=== PATIENT | male | born 1970 | race Caucasian/White ===

== ENCOUNTER 2024-10-21 15:53 | Emergency (ER) | payer OTHER, SELFPAY ==
--- NOTE | ~2024-10-21 | XR_ITS ---
EXAMINATION: XR knee LT min 4V DATE: 10/21/2024 16:31 INDICATION: Left knee pain and swelling TECHNIQUE: Anteroposterior, 2 oblique and crosstable lateral views of the left knee were obtained COMPARISON: None. FINDINGS: Alignment is normal. No fracture. Joint spaces appear normal on nonweightbearing imaging. No joint e ffusion/layering lipohemarthrosis. There is prominent prepatellar and prepatellar soft tissue swellin g. IMPRESSION: 1. Nonspecific prepatellar and pretibial soft tissue swelling. No left knee joint effusion or osseous adenopathy. Reviewed, dictated and finalized at location A. IMPRESSION: 1. Nonspecific prepatellar and pretibial soft tissue swelling. No left knee ashley nt effusion or osseous adenopathy.
--- OUTSIDE RECORDS SUMMARY | 2024-10-21 15:56 | XMS_ITS | Clinical Summary ---
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 This disclosure is being madepursuant to the Care Everywhere program and may not contain all information available regarding this patient. Last updated 17.[facility] Allergies No known active allergies Medications * Be aware that medications may not be up to date on this document. Alwaysverify current medications with the patient. No known medications Social History Tobacco Use Types Packs/Day Years Used Date Smoking Tobacco: Never Smokeless Tobacco: Never Sex and Gender Information Value Date Recorded Sex Assigned at Not on file Legal Sex Male 4:07 AM CDT Gender Identity Not on file Sexual Orientation Not on file Last Filed Vital Signs Vital Sign Reading Time Taken Comments Blood Pressure 148/90 12/02/2019 4:50 PM CDT Pulse 99 12/02/2019 4:50 PM CDT Temperature 36.8 C (98.3 F) 12/02/2019 4:50 PM CDT Respiratory Rate - - Oxygen Saturation 98% 12/02/2019 4:50 PM CDT Inhaled Oxygen Concentration - - Weight 85.5 kg (188 lb 9.6 oz) 12/02/2019 4:50 P M CDT Height 167.6 cm (5' 6) 12/02/2019 4:50 PM CDT Body Mass Index 30.44 12/02/2019 4:50 PM CDT Plan of Treatment Health Maintenance Due Date Last Done Comments COLOGUARD (AGES 45-75) - COL ON CA SCREENING 1971 COLON MONITORING 1971 COLONOSCOPY - COLON CA SCREENING 1971 CT COLONOGRAPHY - COLON CA SCREENING 1971 Colorectal Cancer Screening 1971 FIT - COLON CA SCREENING 1971 FLEX SIG - COLON CA SCREENING 1971 LIPID TESTING 1971 HIV SCREENING 05/29/1986 HEPATITIS C SCREENING 05/25/1989 DTAP/TDAP/TD VACCINES (1 - Tdap) 05/29/1990 HEPATITIS B VACCINE (1 of 3 - 19+ 3-dose series) 05/29/1990 SCREENING FOR DIABETES 12/02/2019 PNEUMOCOCCAL VACCINE 50+ (1 of 1 - PCV) 05/29/2021 ZOSTER VACCINE (1 of 2) 05/29/2021 COVID-19 VACCINE (1 - 2023-2 5 season) 2023 DEPRESSION SCREENING 03/17/2024 INFLUENZA VACCINE (#1) 2024 HIB VACCINE Aged Out No longer eligi ble based on patient's age to complete this topic HPV VACCINE Aged Out No longer eligi ble based on patient's age to complete this topic MENINGOCOCCAL (Group B) VACC INE SHARED DECISION-MAKING Aged Out No longer eligibl e based on patient's age to complete this topic MENINGOCOCCAL GROUPS A/C/Y/W VACCINE Aged Out No longer eligible b ased on patient's age to complete this topic Insurance [employer] Care Teams Solid Fiber Paster Operator Relationship Specialty Start Date End Date Mat Feliciano MD [address] [place] [address] PCP - General 12/15/18
[2024-10-21 16:17] VITALS: BP 135/81; PULSE 106; RESP 18; TEMP 36.9; O2SAT 96
--- NOTE | 2024-10-21 16:24 | ED_ITS ---
HPI - Extremity Injury (Lower) General Chief Complaint: Extremity Injury, Lower <Ayah Shelton PA-C - Last Filed: 10/21/24 16:26> Stated Complaint: knee pain, swelling <Ayah Shelton PA-C - Last Filed: 10/21/24 16:26> Time Seen by Provider: 10/21/24 17:01 <Ayah Shelton PA-C - Last Filed: 10/21/24 16:26> Focused HPI: 54-year-old male presents emergency department for left knee pain. 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 A few days ago he had his left knee on his car door but did not think anything of it. He was not having any immediate pain. He states about 2 days ago he began developing pain, redness and swelling to his left knee which is progressively worsened and prompted him to come to the ER. He denies difficulty with range of motion but states it does hurt to walk. Denies fevers. Denies recent procedures or injections to his knee. GENERAL: Well-appearing, well-nourished, and in no acute distress. HEAD: Normocephalic, atraumatic. CHEST: Clear to auscultation. ?No respiratory distress. EXT: Left knee with pre patellar edema, erythema, warmth and mild tenderness. Patient does have full range of motion of knee without difficulty. DP pulse is 2+. Sensation intact. HEART: Regular rate and rhythm.? NEURO: ?Alert and oriented x3. Patient screened in triage and initial orders placed.? ?Additional care and disposition to be based upon?diagnostic testing and treatment. <Ayah Shelton PA-C - Last Filed: 10/21/24 16:26> Focused HPI: 54-year-old male presents emergency department for left knee pain. 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 A few days ago he hit his left knee on his car door but did not think anything of it. He was not having any immediate pain. He states about 2 days ago he began developing pain, redness and swelling to his left knee which is progressively worsened and prompted him to come to the ER. He denies difficulty with range of motion but states it does hurt to walk. Denies fevers. Denies recent procedures or injections to his knee. GENERAL: Well-appearing, well-nourished, and in no acute distress. HEAD: Normocephalic, atraumatic. CHEST: Clear to auscultation. ?No respiratory distress. EXT: Left knee with pre patellar edema, erythema, warmth and mild tenderness. Patient does have full range of motion of knee without difficulty. DP pulse is 2+. Sensation intact. HEART: Regular rate and rhythm.? NEURO: ?Alert and oriented x3. Patient screened in triage and initial orders placed.? ?Additional care and disposition to be based upon?diagnostic testing and treatment. <Jannette Haney APRN - Last Filed: 10/22/24 01:40> History of Present Illness HPI Narrative: I agree with assessment and documentation of Ayah Shelton PA-C. <Jannette Haney APRN - Last Filed: 10/22/24 01:40> Related Data Home Medications: Home Medications ?Medication ?Instructions ?Recorded ?Confirmed ?Last Taken ?Type omeprazole 40 mg capsule,delayed 40 mg PO DAILY 01/05/20 Unknown History release <Ayah Shelton PA-C - Last Filed: 10/21/24 16:26> Allergies/Adverse Reactions: Allergies Allergy/AdvReac Type Severity Reaction Status Date / Time No Known Allergies Allergy Verified 10/21/24 15:54 <Ayah Shelton PA-C - Last Filed: 10/21/24 16:26> Review of Systems Review of Systems: All systems reviewed & are unremarkable except as noted in HPI and below <Jannette Haney APRN - Last Filed: 10/22/24 01:40> PMFSH Past Medical History Medical History: Medical History (Updated 10/22/24 @ 00:00 by Apolinar Tavares) Esophageal dilatation Asthma Asthma <Ayah Shelton PA-C - Last Filed: 10/21/24 16:26> Family History Family History: Family History Father Family history of cardiovascular disease Mother Carcinoma of colon <Ayah Shelton PA-C - Last Filed: 10/21/24 16:26> Social History Social History: Social History Smoking status: Never smoker Second hand tobacco smoke exposure: No Alcohol intake: current Substance use: never Substance use type: does not use Living arrangements: with family Occupation/Education: occupation Gender identity (if verbalized by the patient): Male <Ayah Shelton PA-C - Last Filed: 10/21/24 16:26> Exam Narrative: GENERAL: Well-appearing, well-nourished, and in no acute distress. HEAD: Normocephalic, atraumatic. CHEST: Clear to auscultation. ?No respiratory distress. EXT: Left knee with pre patellar edema, erythema, warmth and mild tenderness. Patient does have full range of motion of knee without difficulty. DP pulse is 2+. Sensation intact. Negative Delbert's test. HEART: Regular rate and rhythm.? NEURO: ?Alert and oriented x3. <Jannette Haney APRN - Last Filed: 10/22/24 01:40> Course Vital Signs Vital signs: Vital Signs Temperature 36.9 C 10/21/24 16:17 Pulse Rate 106 H 10/21/24 16:17 Respiratory Rate 18 10/21/24 16:17 Blood Pressure 135/81 10/21/24 16:17 Pulse Oximetry 96 10/21/24 16:17 Oxygen Delivery Room Air 10/21/24 16:17 Temperature 36.8 C 10/21/24 17:00 Pulse Rate 62 10/21/24 17:00 Respiratory Rate 12 10/21/24 17:00 Blood Pressure 132/74 10/21/24 17:00 Pulse Oximetry 98 10/21/24 17:00 Oxygen Delivery Room Air 10/21/24 17:00 <Ayah Shelton PA-C - Last Filed: 10/21/24 16:26> Vital Signs Temperature 36.9 C 10/21/24 16:17 Pulse Rate 106 H 10/21/24 16:17 Respiratory Rate 18 10/21/24 16:17 Blood Pressure 135/81 10/21/24 16:17 Pulse Oximetry 96 10/21/24 16:17 Oxygen Delivery Room Air 10/21/24 16:17 Temperature 36.8 C 10/21/24 17:00 Pulse Rate 62 10/21/24 17:00 Respiratory Rate 12 10/21/24 17:00 Blood Pressure 132/74 10/21/24 17:00 Pulse Oximetry 98 10/21/24 17:00 Oxygen Delivery Room Air 10/21/24 17:00 <Jannette Haney APRN - Last Filed: 10/22/24 01:40> MDM - Extremity Injury (Lower) MDM Narrative Medical decision making narrative: 54-year-old male presents emergency department for left knee pain. 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 A few days ago he had his left knee on his car door but did not think anything of it. He was not having any immediate pain. He states about 2 days ago he began developing pain, redness and swelling to his left knee which is progressively worsened and prompted him to come to the ER. He denies difficulty with range of motion but states it does hurt to walk. Denies fevers. Denies recent procedures or injections to his knee. Upon further discussion with patient and his , they report the site has seemed red, inflamed and warm to the touch. Labs Ordered: CBC, CMP, lactic acid (patient refused) Imaging Ordered: Left knee x-ray Medications Ordered: Toradol 15 mg IV (patient refused) Results: L knee x-ray indicates Alignment is normal. No fracture. Joint spaces appear normal on nonweightbearing imaging. No joint effusion/layering lipohemarthrosis. There is prominent prepatellar and prepatellar soft tissue swelling. Diagnosis: Left knee soft tissue injury Consults: Orthopedics (outpatient) Patient Education/Shared MDM: Results of imaging shared with patient. Initially he was in agreement with plan for blood work to rule out infection, but then he decided to follow-up with his primary care provider instead. He reports he has medication at home to help relieve his pain. Patient strongly advised to follow-up with his PCP and orthopedics as needed. An Kin wrap will be placed to the site, and patient will not be discharged home with any new prescriptions. Strict return precautions provided. Patient verbalized understanding and is in agreement with plan. Vital signs stable at time of discharge. All questions answered. <Jannette Haney APRN - Last Filed: 10/22/24 01:40> Differential Diagnosis Differential diagnosis: Likely acute internal derangement of knee and other (Meniscus tear, ACL injury, soft tissue swelling) <Jannette Haney APRN - Last Filed: 10/22/24 01:40> Imaging Data Attestation: I personally reviewed and interpreted this imaging study as follows: <Jannette Haney APRN - Last Filed: 10/22/24 01:40> Radiologist's impression: Impressions Knee X-Ray 10/21/24 17:06 IMPRESSION: 1. Nonspecific prepatellar and pretibial soft tissue swelling. No left knee joint effusion or osseous adenopathy. <Jannette Haney APRN - Last Filed: 10/22/24 01:40> Discharge Plan Discharge Clinical Impression: Pain and swelling of left knee <Ayah Shelton PA-C - Last Filed: 10/21/24 16:26> Patient Disposition: Home <Ayah Shelton PA-C - Last Filed: 10/21/24 16:26> Condition: Stable <Ayah Shelton PA-C - Last Filed: 10/21/24 16:26> Instructions: Antibiotic Form <SOFIA Weinstein Last Filed: 10/21/24 16:26> Additional Instructions: Please return to the ER with any worsening symptoms. Follow-up with primary care provider and orthopedic surgery as needed. Take all medications as prescribed, including regularly scheduled medications. You may take Tylenol and ibuprofen for pain control. Please keep your knee elevated when possible. <Ayah Shelton PA-C - Last Filed: 10/21/24 16:26> Patient Language: Arabic <Ayah Shelton PA-C - Last Filed: 10/21/24 16:26> Prescriptions: No Action omeprazole 40 mg capsule,delayed release(DR/EC) 40 mg PO DAILY ibuprofen 800 mg tablet 800 mg PO TID Qty: 90 5RF <Ayah Shelton PA-C - Last Filed: 10/21/24 16:26> Follow-up/Referrals: Mat Feliciano MD [Primary Care Provider] - Sulaiman Coley MD [Physician] - (orthopedic surgery) <Ayah Shelton PA-C - Last Filed: 10/21/24 16:26> Time of Disposition: 18:02 <Ayah Shelton PA-C - Last Filed: 10/21/24 16:26> 18:02 <Jannette Haney APRN - Last Filed: 10/22/24 01:40>
[2024-10-21 17:00] VITALS: BP 132/74; PULSE 62; RESP 12; TEMP 36.8; O2SAT 98
--- OUTSIDE RECORDS SUMMARY | 2024-10-21 18:23 | XMS_ITS | Clinical Summary ---
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 Name Role Phone Yin Petersen NP Primary Care Provider [phone] Allergies No known active allergies Medications Space Chamber spacer USE DIRECTED WITH ALBUTEROL 06/13/19 24 Active tiotropium bromide (SPIRIVA RESPIMAT) 2.5 mcg/actuation inhalerIndication s:Mild intermittent asthma with acute exacerbation Inhale 2 puffs daily 1 each 1 07/07/19 24 Active Additional Information Patient not taking.Reported on 10/07/2024 ipratropium-albut Liz (DUO-NEB) 0.5-2.5 mg/3 mL nebulizer solutionIndicatio ns:Chronic Obstructive Pulmonary Disease with Bronchospasms Take 3 mL by nebulization every 6 (six) hours 1080 mL 1 10/01/19 24 Active naloxone (NARCAN) 4 mg/actuation spray,non-aerosol Administer 1 spray into affected nostril(s) as needed for opioid reversal or respiratory depression Call 911. Administer a single spray in one nostril. Repeat every 3 minutes as needed if no or minimal response. 1 each 04/06/19 25 Active albuterol HFA (PROVENTIL HFA,VENTOLIN HFA,PROAIR HFA) 90 mcg/actuation inhalerIndication s:Mild intermittent asthma with acute exacerbation Inhale 2 puffs every 4 (four) hours as needed for wheezing 2 each 2 07/14/19 25 Active dextroamphetamine -amphetamine (ADDERALL) 30 mg tablet Take 1 tablet (30 mg total) by mouth 2 (two) times a day 60 tablet 09/17/19 25 Active ibuprofen (ADVIL,MOTRIN) 800 mg tablet Take 1 tablet (800 mg total) by mouth every 6 (six) hours as needed for pain Active oxyCODONE-acetami nophen (PERCOCET) 5-325 mg per tabletIndications :Pain Take 1 tablet by mouth 2 (two) times a day for 14 days 28 tablet 09/17/19 25 025 oxyCODONE-acetami nophen (PERCOCET) 5-325 mg per tabletIndications :Pain Take 1 tablet by mouth 2 (two) times a day 025 Discontinu ed(Reorder ) oxyCODONE-acetami nophen (PERCOCET) 5-325 mg per tabletIndications :Pain Take 1 tablet by mouth 2 (two) times a day for 10 days 20 tablet 10/09/19 25 025 Active Problems Problem Noted Date Diagnosed Date Acute right-sided low back pain without sciatica 08/03/2024 Assessment & Plan (08/03/2024 2:35 PM CDT): Patient with acute on chronic low back pain. Pain increased after lifting heavy recliner about 5 days ago. Has not noted improvement with use of Flexeril, ibuprofen or tramadol. He was referred to ortho/spine and is scheduled for evaluation next week. He states that he has working with chiropractor which is also provided little to no relief symptoms. He denies any radiating pain, no lower extremity weakness or paresthesias. Denies any bowel or bladder disturbance. Recommended continued use of NSAIDs and prescribed meloxicam 15 mg daily. Instructed patient to avoid additional NSAIDs with use of meloxicam. Can continue Flexeril p.r.n.. Given acute exacerbation prescribed prednisone taper today as well. Patient is very active, states that he is going to the gym daily. Declines physical therapy referral at this time. BMI 29.0-29.9,adult 08/03/2024 Assessment & Plan (08/03/2024 2:39 PM CDT): BMI unchanged, appropriate for patient. Arm injury, left, initial encounter 03/23/2024 Assessment & Plan (05/06/2024 1:57 PM [employer]): Stable, improving; patient has returned to exercise, using slow gradual return to reduce risk of re-injury; patient would like to avoid surgical intervention Assessment & Plan (03/24/2024 9:57 AM [employer]): Neurovascularly intact. X-rays ordered. Will also consider MRI versus referral to clinic specialist. Rest. Ice. Chronic bilateral thoracic back pain 07/10/2023 Assessment & Plan (09/28/2024 4:48 PM CDT): Not well controlled; continues to have significant pain; no compression fracture at L3 with severe stenosis Patient to follow-up with pain management or spinal surgeon Order to allow patient to continue to work in bridge gap until pain management; will start oxycodone 5 mg b.I.d. Encourage regular physical activity as tolerated Dysphagia 07/10/2023 QAMAR (generalized anxiety disorder) 07/10/2023 Assessment & Plan (09/28/2024 4:49 PM CDT): Stable, well controlled; no major issues; good relief with medication which allows him to focus Continue Adderall 30 mg b.I.d. Assessment & Plan (10/01/2023 1:31 PM CDT): Chronic, not well controlled Did not notice a difference on Venlafaxine Has been on multiple different medications previously Xanax 0.5 mg BID PRN Explosive personality disorder 07/10/2023 Assessment & Plan (05/06/2024 1:57 PM [employer]): Not well controlled; patient reports no significant relief with current medications, patient reports he has been on multiple antidepressant and antianxiety medications with limited relief Prior has had good relief with stimulants Patient may have underlying ADHD which was not prior diagnosed Will start Adderall 30 mg daily; follow-up with response to therapy Discussed with patient medication interactions between Adderall tramadol; recommend cessation tramadol are ensuring the airspace far apart Assessment & Plan (10/01/2023 1:31 PM CDT): Chronic, not well controlled Did not notice a difference on Venlafaxine Has been on multiple different medications previously Xanax 0.5 mg BID PRN Stricture of esophagus 03/29/2014 Assessment & Plan (05/06/2024 1:57 PM [employer]): Stable, well controlled; patient reports he has some episodes of difficulty with swallowing, but generally is able to swallow well To follow up with GI if symptoms worsen Encounters Date Type Department Care Team Description 10/15/2024 9:30 AM CDT - 10/15/2024 11:59 PM CDT [facility]counter [facility] [address] [place] [address] Todd Thomas MD Spondylosis of lumbar region without myelopathy or radiculopathy Discharge Disposition: Discharge to home or self care 10/15/2024 Telephone [facility] [address] [place] [address] Todd Thomas MD pain diary 10/07/2024 7:24 AM CDT - 10/07/2024 11:59 PM CDT Hospital Encounter [facility] [address] [place] [address] Todd Thomas MD Spondylosis of lumbar region without myelopathy or radiculopathy (Primary Dx); Acute bilateral low back pain without sciatica; Closed compression fracture of L3 lumbar vertebra, initial encounter ([facility]) Discharge Disposition: Discharge to home or self care 10/07/2024 [facility]phone [facility] [address] [place] [address] Yin Petersen NP Med Refill 10/05/2024 Telephone [facility] [address] [place] [address] Luba Jones, SHORTY PMC Intake Assessment 10/05/2024 Telephone [facility] [address] [place] [address] Office [facility] [address] [place] [address] Avery Suero DO Scheduling Appointments 10/05/2024 Orders Only [facility] [address] [place] [address] [address] [place] [address] Avery Suero DO Closed compression fracture of L3 lumbar vertebra, initial encounter (HCC) (Primary Dx); Acute bilateral low back pain without sciatica 10/05/2024 Orders Only [facility] [address] [place] [address] [address] [place] [address] Avery Suero DO Closed compression fracture of L3 lumbar vertebra, initial encounter (HCC) (Primary Dx); Acute bilateral low back pain without sciatica 10/01/2024 2:15 PM CDT Office Visit [facility] [address] [place] [address] Office [facility] [address] [place] [address] Avery Suero DO Acute bilateral low back pain without sciatica (Primary Dx); Closed compression fracture of L3 lumbar vertebra, initial encounter (HCC) 10/01/2024 Orders Only [address] [place] [address] Avery Suero DO Acute bilateral low back pain without sciatica (Primary Dx) 09/20/2024 Telephone [facility] [address] [address] Yin Petersen NP Prior Auth (OXYCODONE) 09/16/2024 3:30 PM CDT Office Visit [facility] [address] [address] Abad Grimm MD Chronic bilateral thoracic back pain (Primary Dx); Lipid screening; QAMAR (generalized anxiety disorder) 09/16/2024 Telephone [facility] [address] [address] Yin Petersen NP Med Refill 08/29/2024 7:58 AM CDT - 08/29/2024 11:59 PM CDT Hospital Encounter [facility] [address] [place] [id number] Discharge Disposition: Discharge to home or self care 08/10/2024 9:34 AM CDT - 08/10/2024 11:59 PM CDT Hospital Encounter [facility] [address] [place] [address] Discharge Disposition: Discharge to home or self care 08/10/2024 8:30 AM CDT Office Visit [facility] [address] [facility] [address] [place] [phone] Devin Bahena PA Acute bilateral low back pain without sciatica 08/10/2024 7:23 AM CDT - 08/10/2024 11:59 PM CDT Hospital Encounter [id number] [address] [facility] [address] [place] [phone] Lumbar pain Discharge Disposition: Discharge to home or self care 08/06/2024 Orders Only [facility] [address] [facility] [address] [place] [phone] Avery Suero DO Lumbar pain (Primary Dx) 08/03/2024 11:30 AM CDT [facility] Visit [facility] [address] [address] Leslie Guzman NP Acute right-sided low back pain without sciatica (Primary Dx); BMI 29.0-29.9,adult 08/02/2024 Telephone [facility] Scheduling [address] [place] [address] Jenna Canseco 08/02/2024 Nurse Triage [facility] [address] [address] Yin Petersen NP 07/30/2024 5:30 PM CDT Office Visit [facility] at [address] [address] Rody Rodrigues NP Acute bilateral low back pain without sciatica (Primary Dx) 07/30/2024 Nurse Triage [facility] [address] [address] Yin Petersen NP from Last 3 Months Immunizations Immunization Administration Dates Next Due DTaP 09/05/2014 Influenza, Unspecified 05/06/2024(Deferr ed: Patient Refused),03/23/2024(Deferred: Patient Refused),12/16/2023(Deferred: Patient Refused),10/14/2023(Deferred: Patient Refused),06/16/2023(Deferred: Patient Refused),01/16/2023(Deferred: Patient Refused),01/16/2023(Deferred: Patient Refused),01/16/2023(Deferred: Patient Refused),12/15/2022(Deferred: Patient Refused),11/15/2022(Deferred: Patient Refused),12/15/2021(Deferred: Patient Refused),12/15/2021(Deferred: Patient Refused),12/15/2021(Deferred: Patient Refused),12/15/2021(Deferred: Patient Refused) Pfizer SARS-CoV-2 Monovalent Vaccination (12+ Yrs) DRUMMOND-READY TO USE 04/14/2021 Pfizer SARS-CoV-2 Monovalent Vaccination (12+ Yrs) PURPLE 03/23/2021 Tdap 09/05/2014 Surgical History Surgery Date Site/Laterality Comments ESOPHAGOSCOPY W/ DILATION x3 VASECTOMY 03/17/2001 - 03/16/2002 SHOULDER SURGERY 03/17/2010 - 03/16/2011 Right Medical History Medical History Date Comments Asthma Unable to control anger Anxiety Chronic pain disorder Low back pain Scoliosis Family History Medical History Relation Name Comments Heart attack Father Cancer Mother Relation Name Status Comments Father Mother Social History Tobacco Use Types Packs/Day Years Used Date Smoking Tobacco: Some Days Vaping Tobacco Cessation:Ready to Q uit: Not Asked; Counseling Given: Not Answered [facility] Utilities Answer Date Recorded In the past 12 months has th e electric, gas, oil, or water Eventable threatened to shut off services in your home? No 07/07/2023 Humiliation, Afraid, Rape, and Kick questionnair e Answer Date Recorded Within the last year, have y ou been afraid of your partner or ex-partner? No 07/07/2023 Within the last year, have y ou been humiliated or emotionally abused in other ways by your partner or ex-partner? No Within the last year, have y ou been kicked, hit, slapped, or otherwise physically hurt by your partner or ex-partner? No 07/07/2023 Within the last year, have y ou been raped or forced to have any kind of sexual activity by your partner or ex-partner? No 07/07/2023 Social Connection and Isolat ion Panel [NHANES] Answer Date Recorded In a typical week, how many times do you talk on the phone with family, friends, or neighbors? More than three times a week 07/07/2023 How often do you get togethe r with friends or relatives? Once a week 07/07/2023 How often do you attend chur ch or hinduism services? More than 4 times per year 07/07/2023 Do you belong to any clubs o r organizations such as rastafari groups, unions, fraternal or athletic groups, or school groups? No 07/07/2023 How often do you attend meet ings of the clubs or organizations you belong to? Never 07/07/2023 Are you , , di vorced, , never , or living with a partner? Living with partner 07/07/2023 AUDIT-C Answer Date Recorded Q1: How often do you have a drink containing alcohol? Never 10/07/2024 Q2: How many drinks containi ng alcohol do you have on a typical day when you are drinking? Patient does not drink Q3: How often do you have si x or more drinks on one occasion? Never 10/07/2024 Overall Financial Resource Strain (CARDIA) Answe r Date Recorded How hard is it for you to pa y for the very basics like food, housing, medical care, and heating? Not hard at all 07/07/2023 PHQ-2 Answer Date Recorded PHQ-2 Total Score (If total score is 3 or more points, staff should administer the PHQ-9) 0 09/16/2024 [facility] [place] [facility] Occupat ional Health - Occupational Stress Questionnaire Answer Date Recorded Do you feel stress - tense, restless, nervous, or anxious, or unable to sleep at night because your mind is troubled all the time - these days? Rather much 07/07/2023 Exercise Vital Sign Answer Date Recorde d On average, how many days pe r week do you engage in moderate to strenuous exercise (like a brisk walk)? 0 days 07/07/2023 On average, how many minutes do you engage in exercise at this level? 0 min 07/07/2023 Hunger Vital Sign Answer Date Recorded Within the past 12 months, y ou worried that your food would run out before you got the money to buy more. Never true 07/07/19 24 Within the past 12 months, t he food you bought just didn't last and you didn't have money to get more. Never true 07/07/2023 PRAPARE - Transportation Answer Date Re corded In the past 12 months, has l ack of transportation kept you from medical appointments or from getting medications? No 06/16 In the past 12 months, has l ack of transportation kept you from meetings, work, or from getting things needed for daily living? No 07/07/2023 Housing Stability Vital Sign Answer Jerson e Recorded In the last 12 months, was t here a time when you were not able to pay the mortgage or rent on time? No 07/07/2023 In the last 12 months, how many places have you lived? 1 07/07/2023 In the last 12 months, was t here a time when you did not have a steady place to sleep or slept in a chcf (including now)? No 07/07/2023 PHQ-9 Answer Date Recorded PHQ-9 Total Score 3 07/07/2023 Sex and Gender Information Value Date Recorded Sex Assigned at Not on file Legal Sex Male 7:32 PM [employer] Gender Identity Not on file Sexual Orientation Not on file Obstetrics History Last Filed Vital Signs Vital Sign Reading Time Taken Comments Blood Pressure 153/95 10/15/2024 10:52 AM CDT Pulse 88 10/15/2024 10:52 AM CDT Temperature 36.1 C (97 F) 10/15/2024 9:43 AM CDT Respiratory Rate 18 10/15/2024 10:52 AM CDT Oxygen Saturation 98% 10/15/2024 10:52 AM CDT Inhaled Oxygen Concentration - - Weight 82.1 kg (181 lb) 10/15/2024 9:43 AM CDT Height 167.6 cm (5' 6) 10/15/2024 9:43 AM CDT Body Mass Index 29.21 10/15/2024 9:43 AM CDT Plan of Treatment Health Maintenance Due Date Last Done Comments Colon Cancer Screening-Colonoscopy 1970 Hepatitis B Screening 05/29/1989 Regular Well Visit/Exam 18-64 05/29/1989 Pneumococcal vaccine <65 (1 of 2 - PCV) 05/29/1990 Zoster Vaccine (1 of 2) 05/29/2021 Covid-19 Vaccine (3 - 2023-2 5 season) 2023 04/14/2021, 03/23/2021 DTaP/Tdap/Td Vaccine (3 - Td or Tdap) 09/05/2024 09/05/2014, 09/05/2014 Influenza Vaccine (#1) 2024 Prostate Cancer Screening-PSA 07/28/2025 07/29/2023 Depression Screening 09/16/2025 09/16/2024, 08/03/2024, 10/01/2023, Additional history exists Hepatitis C Screening Completed 07/29/2023 Goals Goal Patient Goal Type Associated Problems Recent Progress Patient-Stated? Author CCM Chronic Pain Care Plan Chronic Care Management No Lorena Liu RN Note: Problem: Chronic Pain Goals: 1. Minimize further functional decline 2. Maximize quality of life 3. Control pain Strategies: - Activity/exercise program recommendation - Conservative stepwise pain medicine strategy with multi-disciplinary approach - Recommend healthy lifestyle strategies and compensatory methods as needed Reduce the likelihood of falling Lifestyle Lorena Ashraf, RN Note: Below are four things you can do to prevent falls: Begin an exercise program to improve your leg strength & balance Ask your doctor or pharmacist to review your medicines Get annual eye check-ups & update your eyeglasses Make your home safer by: Removing clutter & tripping hazards Putting railings on all stairs & adding grab bars in the bathroom Having good lighting, especially on stairs Contact your local community or free hospital for [facility] for information on exercise, fall prevention programs, or options for improving home safety. Procedures Procedure Name Priority Date/Time Associated Diagnosis Comments PAIN MGMT IMAGING LUMBAR/SACRAL FACET/ MEDIAL BRANCH BLOCK BILATERAL Schedule Routine, Read Routine (OP Routine) 10/15/2024 10:48 AM CDT Spondylosis of lumbar region without myelopathy or radiculopathy MRI LUMBAR SPINE WO CONTRAST Schedule Routine, Read Routine (OP Routine) 08/29/2024 8:32 AM CDT Acute bilateral low back pain without sciatica XR TRANSFER OF OUTSIDE FILMS Routine 08/10/2024 9:34 AM CDT XR SCOLIOSIS 6 OR MORE VIEWS Schedule Routine, Read Routine (OP Routine) 08/10/2024 7:37 AM CDT Lumbar pain HEPATITIS C ANTIBODY Routine 07/29/2023 3:44 PM CDT Need for hepatitis C screening test PSA SCREEN Routine 07/29/2023 3:44 PM CDT Screening for malignant neoplasm of prostate from Last 3 Months or Most Recently Relevant to Health Maintenance Results * Imaging Lumbar/Sacral Facet Medial Branch Block Bilateral (92135) (10/15/2024 10:48 AM CDT) Narrative [facility] - 10/15/2024 10:56 AM CDT The images from this study are not interpreted by Radiology. Please refer to the physician's procedure / OR operative note. us Todd Thomas MD IMG PAIN MGMT PROCEDURES Final Result [facility] * MRI Lumbar Spine WO Contrast (08/29/2024 8:32 AM CDT) Anatomical Region Laterality Modality Spine N/A Magnetic Resonan ce 08/30/2024 10:1 5 AM CDT Impressions 08/30/2024 10:15 AM CDT 1. L3 acute compression fracture results in approximately 20% loss vertebral body height. No retropulsion. 2. Multilevel lumbar spondylosis. 3. L5-S1 severe right foraminal stenosis. Electronically signed by: Jose Braun M.D. Narrative 08/30/2024 10:15 AM CDT MRI LUMBAR SPINE WO CONTRAST 08/29/2024 8:15 AM CLINICAL INDICATION: Low back pain, symptoms persist with > 6 wks treatment. COMPARISON: Radiographs of the lumbar spine dated 08/10/2024. TECHNIQUE: Multiplanar multisequence MRI of the lumbar spine was performed without contrast. FINDINGS: Lumbar alignment is unchanged compared with recent radiographs. There is an L3 acute mild compression fracture that results in approximately 20% loss of vertebral body height. This is more pronounced along the right side of the vertebral body. There is no retropulsion. No other compression deformity or acute marrow signal abnormality is seen. There is mild loss of disc space height at multiple levels. The prevertebral soft tissues are normal. There are no acute findings in the visualized abdomen. The conus is normal in appearance and terminates at L1-2. Evaluation of the individual intervertebral levels is as follows: T12-L1: No central or neural foraminal stenosis. Small nerve root sleeve cyst on the right. L1-2: Mild ligamentous thickening without stenosis. L2-3: Mild disc bulge and ligamentous thickening without stenosis. L3-4: Mild disc bulge, ligamentous thickening and facet degenerative change. Mild central and bilateral neural foraminal stenosis. L4-5: Mild disc bulge, ligamentous thickening and facet degenerative change. Mild narrowing of the left subarticular recess. Mild central and moderate left neural foraminal stenosis. L5-S1: Mild diffuse disc bulge, moderate ligamentous thickening and right worse than left facet degenerative change. Narrowing of the subarticular recess, right worse than left. Mild central, severe right and moderate left neural foraminal stenosis. Visualized sacrum and bony pelvis: No acute findings. Procedure Note Jose Braun MD - 08/30/2024 MRI LUMBAR SPINE WO CONTRAST 08/29/2024 8:15 AM CLINICAL INDICATION: Low back pain, symptoms persist with > 6 wks treatment. COMPARISON: Radiographs of the lumbar spine dated 08/10/2024. TECHNIQUE: Multiplanar multisequence MRI of the lumbar spine was performed without contrast. FINDINGS: Lumbar alignment is unchanged compared with recent radiographs. There is an L3 acute mild compression fracture that results in approximately 20% loss of vertebral body height. This is more pronounced along the right side of the vertebral body. There is no retropulsion. No other compression deformity or acute marrow signal abnormality is seen. There is mild loss of disc space height at multiple levels. The prevertebral soft tissues are normal. There are no acute findings in the visualized abdomen. The conus is normal in appearance and terminates at L1-2. Evaluation of the individual intervertebral levels is as follows: T12-L1: No central or neural foraminal stenosis. Small nerve root sleeve cyst on the right. L1-2: Mild ligamentous thickening without stenosis. L2-3: Mild disc bulge and ligamentous thickening without stenosis. L3-4: Mild disc bulge, ligamentous thickening and facet degenerative change. Mild central and bilateral neural foraminal stenosis. L4-5: Mild disc bulge, ligamentous thickening and facet degenerative change. Mild narrowing of the left subarticular recess. Mild central and moderate left neural foraminal stenosis. L5-S1: Mild diffuse disc bulge, moderate ligamentous thickening and right worse than left facet degenerative change. Narrowing of the subarticular recess, right worse than left. Mild central, severe right and moderate left neural foraminal stenosis. Visualized sacrum and bony pelvis: No acute findings. IMPRESSION: 1. L3 acute compression fracture results in approximately 20% loss vertebral body height. No retropulsion. 2. Multilevel lumbar spondylosis. 3. L5-S1 severe right foraminal stenosis. Electronically signed by: Jose Braun M.D. Devin GORDON IMG MRI PROCEDURES Fin al Result * XR Outside Reference (08/10/2024 9:34 AM CDT) Impressions [facility] - 08/10/2024 9:34 AM CDT These images are for Reference purposes only and have not been reviewed by [facility]. There will be no report generated by a [facility] Radiologist. Narrative [facility] - 08/10/2024 9:34 AM CDT EXAMINATION: Images For Reference Purposes Only Avery Suero DO IMG XR PROCEDURES Final Result [facility] * XR Scoliosis 6 or More Views (08/10/2024 7:37 AM CDT) Anatomical Region Laterality Modality Spine N/A Computed Radiogr aphy 08/10/2024 7:51 AM CDT Impressions 08/10/2024 7:51 AM CDT 1. Age-indeterminate L3 superior endplate compression fracture deformity with mild height loss, new from 2014. 2. Mild rotatory lumbar dextroscoliosis without truncal imbalance. Electronically signed by: Louis Walters D.O. Narrative 08/10/2024 7:51 AM CDT EXAMINATION: XR SCOLIOSIS 6 OR MORE VIEWS HISTORY: Lumbar Pain FINDINGS: Comparison is made to 03/18/2014 radiograph. Mild rotatory lumbar dextroscoliosis appears similar to prior. No significant pelvic obliquity or truncal imbalance. Straightening of cervical spine. Mild multilevel degenerative disc disease. L3 superior endplate compression fracture with mild height loss is age-indeterminate, new from 03/18/2014. Lumbar facet arthropathy. No spondylolisthesis. No dynamic instability. Procedure Note Louis Walters, - 08/10/2024 EXAMINATION: XR SCOLIOSIS 6 OR MORE VIEWS HISTORY: Lumbar Pain FINDINGS: Comparison is made to 03/18/2014 radiograph. Mild rotatory lumbar dextroscoliosis appears similar to prior. No significant pelvic obliquity or truncal imbalance. Straightening of cervical spine. Mild multilevel degenerative disc disease. L3 superior endplate compression fracture with mild height loss is age-indeterminate, new from 03/18/2014. Lumbar facet arthropathy. No spondylolisthesis. No dynamic instability. IMPRESSION: 1. Age-indeterminate L3 superior endplate compression fracture deformity with mild height loss, new from 2014. 2. Mild rotatory lumbar dextroscoliosis without truncal imbalance. Electronically signed by: Louis Walters D.O. Avery Suero DO IMG XR PROCEDURES Final Result * PSA screen (07/29/2023 3:44 PM CDT) PSA-Total 0.69 <=3.90 ng/mL Comment: Interpretive Data AGE SEX REFERENCE INTERVAL 0 minutes-150 years Female None 0 minutes-49 years Male None 50-59 years Male 0-3.90 60-69 years Male 0-5.40 70-79 years Male 0-6.20 80-150 years Male 0-6.20 [place] PSA Total assay procedure was used. Results from different manufacturers or methods may not be comparable. Serial testing should be performed using the same method. Current interpretive data last revised 21. Testing performed by: [facility], [address] [place] [address], [place]., [address] Blood 07/29/2023 3:44 PM CDT 07/29/2023 6:43 PM CDT us Yin Petersen NP LAB BLOOD ORDERABLES Final Resul t [facility]) 3 [facility] Department [place] [address] * Hepatitis C antibody Blood (07/29/2023 3:44 PM CDT) Hep C Ab Nonreactive Nonreactive Comment: Interpretive Data Nonreactive: Antibodies to HCV not detected. Does NOT exclude the possibility of recent exposure to HCV. Equivocal: Equivocal for HCV antibodies. Supplemental molecular testing will be automatically performed to determine infection status in accordance with current CDC screening recommendations. Reactive: Positive for HCV antibodies. This may represent current or past HCV infection. Supplemental molecular testing will be automatically performed to determine current infection status in accordance with current CDC screening recommendations. Interpretive data was last revised on 2019. Testing performed by: [address] [place]., [address] Blood 07/29/2023 3:44 PM CDT 07/29/2023 6:42 PM CDT us Yin Petersen NP LAB MICROBIOLOGY - GENERAL ORDER CURRY Final Result [facility] ([facility]) 1 [facility] Department [place] [address] from Last 3 Months or Most Recently Relevant to Health Maintenance [facility] Care Teams Cruller Maker Relationship Specialty Start Date End Date Yin Petersen NP PCP - General Family Medicine 07/07/23
--- OUTSIDE RECORDS SUMMARY | 2024-10-21 18:23 | XMS_ITS | Encounter Summary ---
Author Organization [facility] Address [address] [place] [address] Phone Care Team Providers Care Paper Products Machine Operator Name Role Phone NicolaYin SUMYAA Primary Care Provider [phone] Reason for Visit * Reason Onset Date Comments Scheduling Appointments 10/05/2024 Encounter Details Date Type Department Care Team (Late st Contact Info) Description 10/05/2024 Telephone [facility] [address] [facility] [address] [place] [address] Avery Suero DO [address] [place] [address] Scheduling Appointments Social History Tobacco Use Types Packs/Day Years Used Date Smoking Tobacco: Former Cigars Vaping [facility] Utilities Answer Date Recorded In the past 12 months has [facility] [employer], gas, oil, or water [employer] threatened to shut off services in your [...] 07/07/2023 How often do you attend chur or hoahaoism services? More than 4 times per year 07/07/2023 Do you belong to any clubs o r organizations such as pentecostalism groups, unions, fraternal or athletic groups, or [...] staff should administer the PHQ-9) 0 09/16/2024 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 Pts were transferred to . Zari * Telephone Encounter - Che Mortensen - 10/05/2024 10:30 AM CDT Due to pt insurance f/u will be with [facility]. Please schedule 3 month F/U documented in this encounter Plan of Treatment Not on file documented as of this encounter Goals Goal Patient Goal Type Associated Problems Recent Progress Patient-Stated? Author CCM Chronic Pain Care Plan Chronic Care Management No Lorena Liu, RN Note: Problem: Chronic Pain Goals: 1. Minimize further functional decline 2. Maximize quality of life 3. Control pain Strategies: - Activity/exercise program recommendation - Conservative stepwise pain medicine strategy with multi-disciplinary approach - Recommend healthy lifestyle strategies and compensatory methods as needed Reduce the likelihood of falling Lifestyle No Lorena Liu, RN Note: Below are four things you [...] on stairs Contact your local community or [facility] for information on exercise, fall prevention programs, or options for improving home safety. documented as of this encounter Visit Diagnoses Not on filedocumented in this encounter Care Teams Paper Products Machine Operator Relationship Specialty Start Date End Date Yin Petersen NP PCP - General Family Medicine 07/07/23 documented as of this encounter
--- OUTSIDE RECORDS SUMMARY | 2024-10-21 18:23 | XMS_ITS | Clinical Summary ---
Author Organization [facility] Address [address] [facility] [place] [address] Care Team Providers Care Plastic Cutter Name Role Phone Mat Feliciano MD Primary Care Provider [phone] Source Comments [facility],non-owned Affiliates and Associated Physician Practices is amultiple site organization consisting of ambulatory clinics and hospital sitesin [place], [place], [place] and [place]. This disclosure is being madepursuant to the Care Everywhere program and may not contain all information available regarding this patient. Last updated 17.[facility] Allergies No known active allergies Medications * [...] this topic Insurance [employer] Care Teams Plastic Cutter Relationship Specialty Start Date End Date Mat Feliciano MD [address] [place] [address] PCP - General 12/15/18
--- OUTSIDE RECORDS SUMMARY | 2024-10-21 18:23 | XMS_ITS | Clinical Summary ---
Author Organization [facility] Address [facility] [place] [address] Care Team Providers Care Burr Bench Operator Name Role Phone None, Provider MD Primary Care Provider Unavaila ble Allergies No known active allergies Medications albuterol (PROVENTIL) (2.5 MG/3ML) 0.083% nebulizer solution Take 3 mLs (2.5 mg total) by nebulization every 6 (six) hours as needed for Wheezing. 360 mL 4 Active Spacer/Aero-Hold ing Chambers DeviceIndication s:Asthma exacerbation (HHS/HCC) Use as instructed with albuterol. 1 each 4 Active Social History Tobacco Use Types Packs/Day Years Used Date Smoking Tobacco: Never Smokeless Tobacco: Never Tobacco Cessation:Counseling Given: Not Answered Sex and Gender Information Value Date Recorded Sex Assigned at Not on file Legal Sex Male 6:55 PM CDT Gender Identity Not on file Sexual Orientation Not on file Last Filed Vital Signs Vital Sign Reading Time Taken Comments Blood Pressure 166/90 06/13/2023 11:03 AM CDT Pulse 90 06/13/2023 1:08 PM CDT Temperature 36.7 C (98.1 F) 06/13/2023 11:03 AM CDT Respiratory Rate 18 06/13/2023 1:08 PM CDT Oxygen Saturation 98% 06/13/2023 1:08 PM CDT Inhaled Oxygen Concentration - - Weight 79.4 kg (175 lb) 06/13/2023 11:03 AM CDT Height 167.6 cm (5' 6) 06/13/2023 11:03 AM CDT Body Mass Index 28.25 06/13/2023 11:03 AM CDT Plan of Treatment Health Maintenance Due Date Last Done Comments Colorectal Cancer Screening Colonoscopy (10 Years) 1971 Annual Physical 05/29/1974 Hepatitis C 05/29/1989 Hepatitis B Vaccines (1 of 3 - 19+ 3-dose series) 05/29/1990 Pneumococcal Vaccine: 50+ Years (1 of 1 - PCV) 05/29/2021 Zoster Vaccines (1 of 2) 05/29/2021 COVID-19 Vaccine (3 - 2023-2 5 season) 2023 04/14/2021, 03/23/2021 DTaP, Tdap and Td Vaccines ( 2 - Td or Tdap) 09/05/2024 09/05/2014 Meningococcal B Vaccine Aged Out No l onger eligible based on patient's age to complete this topic Meningococcal Vaccine Aged Out No teto agus eligible based on patient's age to complete this topic RSV Immunizations Under 20 Months Aged Out No longer eligible b ased on patient's age to [place] [address] [facility] Care Teams Burr Bench Operator Relationship Specialty Start Date End Date None, Provider, PCP - General UNKNOWN PHYSICIAN SPECIALTY 06/13/23
== END 2024-10-21 18:10 | disposition home or self-care (01) ==
LOC: ANHED 18:21
PROVIDERS: Emergency Provider Registered Nurse; PCP Family Medicine
DX: S89.92XA Unspecified injury of left lower leg, initial encounter (principal); M25.462 Effusion, left knee; W22.8XXA Striking against or struck by other objects, initial encounter
CPT/HCPCS: 73564; 99283

== ENCOUNTER 2024-11-02 12:12 | Emergency (ER) | payer OTHER, SELFPAY ==
--- OUTSIDE RECORDS SUMMARY | 2024-11-02 11:00 | XMS_ITS | Encounter Summary ---
Author Organization [facility] Address [address] [place] [address] Care Team Providers Care Reservoir Engineer Name Role Phone Yin Petersen NP Primary Care Provider [phone] Reason for Visit * Reason Comments Joint Swelling L knee. Onset 1 week . Was not this swollen since yesterday. Was using a brace and ice Encounter Details Date Type Department Care Team (Late st Contact Info) Description 11/02/2024 11:00 AM CDT Office Visit [facility] at [address] [place] [address] Manisha Browne MD [address] [place] [address] Swelling of joint, knee, left (Primary Dx) Social History Tobacco Use Types Packs/Day Years Used Date Smoking Tobacco: Some Days Vaping Alcohol Use Standard Drinks/Week Comments Never 0 (1 standard drink = 0.6 oz pur e alcohol) [facility] Utilities Answer Date Recorded In the past 12 months has [facility] [employer], gas, oil, or water [employer] threatened to shut off services in your [...] or ex-partner? No 07/07/2023 Social Connection and Isolation Panel Answer Date Recorded In a typical week, how many times do you talk on the phone with family, friends, or neighbors? More than three times a week 07/07/2023 How often do you get togethe r with friends or relatives? Once a week 07/07/2023 How often do you attend chur ch or buddhist services? More than 4 times per year 07/07/2023 Do you belong to any clubs o r organizations such as scientology groups, unions, fraternal or athletic groups, or school groups? No 07/07/2023 How often do you attend meet ings of the clubs or organizations you belong to? Never 07/07/2023 Are you , , di vorced, , never , or living with a partner? Living with partner 07/07/2023 Overall Financial Resource Strain (CARDIA) Answe r Date Recorded How hard is it for you to pa y for the very basics like food, housing, medical care, and heating? Not hard at all 07/07/2023 PHQ-2 Answer Date Recorded PHQ-2 Total Score (If total score is 3 or more points, staff should administer the PHQ-9) 0 11/02/2024 [facility] - Occupational Stress Questionnaire Answer Date Recorded [...] place to sleep or slept in a fpc (including now)? No 07/07/2023 PHQ-9 Answer Date Recorded PHQ-9 Total Score 3 07/07/2023 AUDIT-C Answer Date Recorded Q1: How often do you have a drink containing alcohol? Never 11/02/2024 Q2: How many drinks containi ng alcohol do you have on a typical day when you are drinking? Patient does not drink Q3: How often do you have si x or more drinks on one occasion? 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 Gender Identity Not on file Sexual Orientation Not on file documented as of this encounter Last Filed Vital Signs Vital Sign Reading Time Taken Comments Blood Pressure 119/73 11/02/2024 10:57 AM CDT Pulse 68 11/02/2024 10:57 AM CDT Temperature 36.7 C (98.1 F) 11/02/2024 10:57 AM CDT Respiratory Rate 16 11/02/2024 10:57 AM CDT Oxygen Saturation 98% 11/02/2024 10:57 AM CDT Inhaled Oxygen Concentration - - Weight 80.8 kg (178 lb 3.2 oz) 11/02/2024 10:57 AM CDT Height 164.6 cm (5' 4.8) 11/02/2024 10:57 AM CD T Body Mass Index 29.83 11/02/2024 10:57 AM CDT documented in this encounter Functional Status * AUDIT-C Score Answer Date of Assessment Author 0 11/02/2024 10:56 AM CDT Gloria Christy MA * Question Answer Date of Assessment Author Q1: How often do you have a drink containing alcohol? Never 11/02/2024 10:56 AM GIOVANIT Gloria Christy MA Q2: How many drinks containing alcohol do you have on a typical day when you are drinking? Patient does not drink 11/02/2024 10:56 AM CDT Gloria Christy MA Q3: How often do you have six or more drinks on one occasion? Never 11/02/2024 10:56 AM CDT Gloria Christy MA documented as of this encounter Progress Notes * Manisha Browne MD - 11/02/2024 11:00 AM CDT Images from the original note were not included. Subjective/Objective Patient ID: Favio Mohamud is a 54 y.o. male. Chief Complaint Chief Complaint Patient presents with Joint Swelling L knee. Onset 1 week. Was not this swollen since yesterday. Was using a brace and ice HPI Favio Mohamud here concerning acute visit for swollen knee. Today's concerns: - knee swelling about a week ago was seen in the ER who discharged ice and wrap it and discharged him and if it doesn't get better follow up with ortho or PCP - yesterday noted the swelling was back and worse after being on knees for a while - does have hx of being on knees for work I the past - denies any popping at inciting incident, no fevers, no sick symptoms, does have full ROM just reports it is tight Current Outpatient Medications Medication Sig Dispense Refill albuterol HFA (PROVENTIL HFA,VENTOLIN HFA,PROAIR HFA) 90 mcg/actuation inhaler Inhale 2 puffs every4 (four) hours as needed for wheezing 2 each 2 dextroamphetamine-amphetamine (ADDERALL) 30 mg tablet Take 1 tablet (30 mg total) by mouth 2 (two) times a day 60 tablet 0 ibuprofen (ADVIL,MOTRIN) 800 mg tablet Take 1 tablet (800 mg total) by mouth every 6 (six) hours asneeded for pain ipratropium-albuteroL (DUO-NEB) 0.5-2.5 mg/3 mL nebulizer solution Take 3 mL by nebulization every 6 (six) hours 1080 mL 1 naloxone (NARCAN) 4 mg/actuation spray,non-aerosol Administer 1 spray into affected nostril(s) as needed for opioid reversal or respiratory depression Call 911. Administer a single spray in one nostril. Repeat every 3 minutes as needed if no or minimal response. 1 each 0 oxyCODONE-acetaminophen (PERCOCET) 5-325 mg per tablet Take 1 tablet by mouth 2 (two) times a day for 10 days 20 tablet 0 Space Chamber spacer USE DIRECTED WITH ALBUTEROL tiotropium bromide (SPIRIVA RESPIMAT) 2.5 mcg/actuation inhaler Inhale 2 puffs daily (Patient not taking: Reported on 10/07/2024) 1 each 1 No current facility-administered medications for this visit. Review of Systems Constitutional: Negative for chills and fever. Musculoskeletal: Positive for gait problem and joint swelling. BP 119/73 (BP Location: Left arm, Patient Position: Sitting) Pulse 68 Temp 36.7 ??C (98.1 ??F) (Oral) Resp 16 Ht 164.6 cm (5' 4.8) Wt 80.8 kg (178 lb 3.2 oz) SpO2 98% BMI 29.83 kg/m?? Physical Exam Constitutional: General: He is not in acute distress. Appearance: He is not ill-appearing. Pulmonary: Effort: Pulmonary effort is normal. Musculoskeletal: Left knee: Swelling and effusion present. Tenderness present. Comments: ROM intact Skin: General: Skin is warm and dry. Neurological: General: No focal deficit present. Mental Status: He is alert. Mental status is at baseline. Psychiatric: Mood and Affect: Mood normal. Thought Content: Thought content normal. Judgment: Judgment normal. Diagnoses and all orders for this visit: Swelling of joint, knee, left (Primary) Assessment & Plan: - Patient presenting with acutely swollen knee, erythematous and warm to the touch with effusion most likely prepatellar however extending beyond knee borders into back of leg -Concern for septic arthritis as such joint tapping deferred at this time advised patient to proceed to ER for further management Return if symptoms worsen or fail to improve. Manisha Browne MD Voice recognition software [employer] was used to dictate and transcribe this document. Health Safety Manager variances may occur. Despite proofreading, typographical errors may occur. Cosigned by Janine Boston MD at 11/02/2024 12:43 PM CDT Associated attestation - Janine Boston MD - 11/02/2024 12:43 PM CDT I have seen and examined the patient. I agree with the findings and plan of care as documented in the resident/fellow's note and as discussed with the resident/fellow. Patient advised to go to ED. Significant other states will go to [facility] as closer to home. documented in this encounter Miscellaneous Notes * Assessment & Plan Note - Manisha Browne MD - 11/02/2024 12:21 PM CDT Associated Problem(s): Swelling of joint, knee, left - Patient presenting with acutely swollen knee, erythematous and warm to the touch with effusion most likely prepatellar however extending beyond knee borders into back of leg -Concern for septic arthritis as such joint tapping deferred at this time advised patient to proceed to ER for further management documented in this encounter Plan of Treatment [...] on stairs Contact your local community or senior [facility] for information on exercise, fall prevention programs, or options for improving home safety. documented as of this encounter Visit Diagnoses Diagnosis Swelling of joint, knee, left- Primary documented in this encounter Care Teams Reservoir Engineer Relationship Specialty Start Date End Date Yin Petersen NP PCP - General Family Medicine 07/07/23 documented as of this encounter
--- OUTSIDE RECORDS SUMMARY | 2024-11-02 11:00 | XMS_ITS | Encounter Summary ---
Author Organization [facility] Healthcare Address [address] [place] [address] Care Team Providers Care Coil Tier Name Role Phone Yin Petersen NP Primary Care Provider [phone] Reason for Visit * Reason Comments Joint Swelling L knee. Onset 1 week . Was not this swollen since yesterday. Was using a brace and ice Encounter Details Date Type Department Care Team (Late st Contact Info) Description 11/02/2024 11:00 AM CDT Office Visit [facility] at [address] [place] [phone] Manisha Browne MD [address] [place] [address] Swelling of joint, knee, left (Primary Dx) Social History Tobacco Use Types Packs/Day Years Used Date Smoking Tobacco: Some Days Vaping Alcohol Use Standard Drinks/Week Comments Never 0 (1 standard drink = 0.6 oz pur e alcohol) [facility] Utilities Answer Date Recorded In the past 12 months has [facility], gas, oil, or water [employer] threatened to shut off services in your [...] often do you attend chur ch or sabianism services? More than 4 times per year 07/07/2023 Do you belong to any clubs o r organizations such as anabaptist groups, unions, fraternal or athletic groups, or [...] staff should administer the PHQ-9) 0 11/02/2024 [facility] - Occupational Stress Questionnaire Answer Date Recorded [...] No 07/07/2023 Housing Stability Vital Sign Answer Jreson e Recorded In the last 12 months, [...] place to sleep or slept in a custodial (including now)? 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 Never 11/02/2024 10:56 AM GIOVANIT Gloria Christy MA documented as of this encounter Plan of Treatment Not on [...] Reduce the likelihood of falling Lifestyle Lorena Ashraf RN Note: Below are four things you [...] stairs Contact your local community or senior [place] for information on exercise, fall prevention programs, or options for improving home safety. documented as of this encounter Visit Diagnoses Diagnosis Swelling of joint, knee, left- Primary documented in this encounter Care Teams Coil Tier Relationship Specialty Start Date End Date Yin Petersen NP PCP - General Family Medicine 07/07/23 documented as of this encounter
[2024-11-02 12:20] VITALS: BP 111/59; PULSE 89; RESP 16; TEMP 36.5; O2SAT 95
--- OUTSIDE RECORDS SUMMARY | 2024-11-02 12:21 | XMS_ITS | Encounter Summary ---
Author Organization [facility] Healthcare Address [address] [place] [address] Care Team Providers Care Cryogenics Engineer Name Role Phone Yin Petersen NP Primary Care Provider [phone] Reason for Visit * Reason Onset Date Comments Knee Pain 11/02/2024 Encounter Details Date Type Department Care Team (Late st Contact Info) Description 11/02/2024 Nurse Triage [facility] [address] [place] [address] Yin Petersen NP [facility] [place] [address] Social History Tobacco Use Types Packs/Day Years Used Date Smoking Tobacco: Some Days Vaping Alcohol Use Standard Drinks/Week Comments Never 0 (1 standard drink = 0.6 oz pur e alcohol) [facility] Utilities Answer Date Recorded In the past [address] [facility] [employer], gas, oil, or water [employer] threatened to shut off services in your [...] How often do you attend chur or yazidism services? More than 4 times per year 07/07/2023 Do you belong to any clubs o r organizations such as catholic groups, unions, fraternal or athletic groups, or [...] staff should administer the PHQ-9) 0 11/02/2024 [facility] - [...] place to sleep or slept in a jail (including now)? 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 Went to ED a week ago with mild knee swelling. Had xray and given REESE wrap, advised flexible knee brace. Advised possible tear in knee. Advised to call PCP or ortho ifno improvement. Called ortho last night via [employer]. No known injuries. 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 Yesterday pt was doing work being on knees and now the knee is very swollen. Has redness last night but seems to have subsided mostly now. Pain rated now with walking 8/10. Denies fever, thigh or calf pain or swelling, chest pain, SOB. RN gave care advice and scheduled today for evaluation. To call if worsens or needs further f/u. Disposition See Today in Office Reason for Disposition SEVERE pain (e.g., excruciating, unable to walk) Protocols Used Knee Ilao-Qljcc-GC * Telephone Encounter - Sylwia Olivo RN - 11/02/2024 8:46 AM CDT Regarding: Severe pain and extreme swelling in left knee. ----- Message from [employer] sent at 11/02/2024 8:44 AM CDT ----- Symptom Based Call Chief Complaint(s): Severe pain and extreme swelling in left knee. Duration: Started last night What type of symptom(s) is the patient experiencing? Red Flag. Is the patient concerned they are experiencing a medical emergency requiring an ambulance? No Additional Comments: Patient went to ER at [facility] on 10/28 for a little swelling. Xray was completed and nothing found. Per patient okay to speak with Abby. Does message need to be routed? Yes-Action Needed documented in this encounter Plan of Treatment [...] the likelihood of falling Lifestyle No Lorena Liu RN Note: Below are four things you [...] stairs Contact your local community or senior center for information on exercise, fall prevention programs, or options for improving home safety. documented as of this encounter Visit Diagnoses Not on filedocumented in this encounter Care Teams Cryogenics Engineer Relationship Specialty Start Date End Date Yin Petersen NP PCP - General Family Medicine 07/07/23 documented as of this encounter
--- OUTSIDE RECORDS SUMMARY | 2024-11-02 12:21 | XMS_ITS | Encounter Summary ---
Author Organization [facility] Healthcare Address [address] [place] [address] Care Team Providers Care Production Counter Name Role Phone Yin Petersen NP Primary Care Provider [phone] Reason for Visit * Reason Onset Date Comments Prior Authorization (Oxycodone) 11/02/2024 Encounter Details Date Type Department Care Team (Late st Contact Info) Description 11/02/2024 Telephone [facility] [address] [facility] [place] [address] Yin Petersen NP [address] [place] [address] Prior Authorization (Oxycodone) Social History Tobacco Use Types Packs/Day Years Used Date Smoking Tobacco: Some Days Vaping Alcohol Use Standard Drinks/Week Comments Never 0 (1 standard drink = 0.6 oz pur e alcohol) [facility] Utilities Answer Date Recorded In the past 12 months has [employer], oil, or water [employer] threatened to shut off services in your [...] How often do you attend chur or gnosticist services? More than 4 times per year 07/07/2023 Do you belong to any clubs o r organizations such as methodist groups, unions, fraternal or athletic groups, or [...] staff should administer the PHQ-9) 0 11/02/2024 [facility] - Occupational Stress Questionnaire Answer Date Recorded [...] place to sleep or slept in a long-term (including now)? 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 Never 11/02/2024 10:56 AM Gloria Del Cid MA Q2: How many drinks containing alcohol do you have on a typical day when you are drinking? Patient does not drink 11/02/2024 10:56 AM Gloria Del Cid MA Q3: How often do you have six or more drinks on one occasion? Never 11/02/2024 10:56 AM Gloria Del Cid MA documented as of this encounter Miscellaneous Notes * Telephone Encounter - Leelee Cunningham MA - 11/02/2024 11:08 AM CDT [facility] PA on Oxycodone Submitted PA through cover my meds Waiting on a response documented in this encounter Plan of Treatment [...] stairs Contact your local community or senior delavan for information on exercise, fall prevention programs, or options for improving home safety. documented as of this encounter Visit Diagnoses Not on filedocumented in this encounter Care Teams Production Counter Relationship Specialty Start Date End Date Yin Petersen NP PCP - General Family Medicine 07/07/23 documented as of this encounter
--- OUTSIDE RECORDS SUMMARY | 2024-11-02 12:21 | XMS_ITS | Clinical Summary ---
Author Organization [facility] Address [address] [place] [address] Care Team Providers Care Washtub Worker Helper Name Role Phone Mat Feliciano MD Primary Care Provider [phone] Source Comments [facility],non-owned Affiliates and Associated Physician Practices is amultiple site organization consisting of ambulatory clinics and hospital sitesin [place], [place], [place] and [place]. This disclosure is being madepursuant to the Care Everywhere program and may not contain all information available regarding this patient. Last updated 17.[facility] Allergies No known active allergies Medications * [...] this topic Insurance [employer] Care Teams Washtub Worker Helper Relationship Specialty Start Date End Date Mat Feliciano MD [address] [place] [address] PCP - General 12/15/18
--- OUTSIDE RECORDS SUMMARY | 2024-11-02 12:21 | XMS_ITS | Clinical Summary ---
Author Organization [facility] Address [address] [place] [address] Care Team Providers Care Credit Assistant Name Role Phone Yin Petersen NP Primary Care Provider [phone] Allergies No known active allergies Medications Space [...] wheezing 2 each 2 07/14/19 25 Active ibuprofen (ADVIL,MOTRIN) 800 mg tablet Take 1 tablet (800 mg total) by mouth every 6 (six) hours as needed for pain Active dextroamphetamine -amphetamine (ADDERALL) 30 mg tablet Take 1 tablet (30 mg total) by mouth 2 (two) times a day 60 tablet 10/29/19 25 025 Active oxyCODONE-acetami nophen (PERCOCET) 5-325 mg per tabletIndications :Pain Take 1 tablet by mouth 2 (two) times a day for 10 days 20 tablet 11/02/19 25 025 Active dextroamphetamine -amphetamine (ADDERALL) 30 mg tablet Take 1 tablet (30 mg total) by mouth 2 (two) times a day 60 tablet 09/17/19 25 025 Discontinu ed(Reorder ) oxyCODONE-acetami nophen (PERCOCET) 5-325 mg per tabletIndications :Pain Take 1 tablet by mouth 2 (two) times a day 025 Discontinu ed(Reorder ) oxyCODONE-acetami nophen (PERCOCET) 5-325 mg per tabletIndications :Pain Take 1 tablet by mouth 2 (two) times a day for 10 days 20 tablet 10/09/19 25 025 Active Problems Problem Noted Date Diagnosed Date Swelling of joint, knee, left 11/02/2024 Acute right-sided low back pain without sciatica [...] 03/23/2024 Assessment & Plan (05/06/2024 1:57 PM MANNEQUIN MOLD MAKER): Stable, improving; patient has returned to exercise, using slow gradual return to reduce risk of re-injury; patient would like to avoid surgical intervention Assessment & Plan (03/24/2024 9:57 AM MANNEQUIN MOLD MAKER): Neurovascularly intact. X-rays ordered. Will also consider MRI versus referral to usability specialist. Rest. Ice. Chronic bilateral thoracic back [...] 07/10/2023 Assessment & Plan (05/06/2024 1:57 PM MANNEQUIN MOLD MAKER): Not well controlled; patient reports no significant [...] 03/29/2014 Assessment & Plan (05/06/2024 1:57 PM MANNEQUIN MOLD MAKER): Stable, well controlled; patient reports he has some episodes of difficulty with swallowing, but generally is able to swallow well To follow up with GI if symptoms worsen Encounters Date Type Department Care Team Description 11/02/2024 11:00 AM CDT Office Visit [facility] at [address] [place] [address] Manisha Browne MD Swelling of joint, knee, left (Primary Dx) 11/02/2024 Telephone [facility] [address] [address] Yin Petersen NP Prior Authorization (Oxycodone) 11/02/2024 Nurse Triage [facility] [address] [address] Yin Petersen NP 10/15/2024 9:30 AM CDT - 10/15/2024 11:59 PM CDT Hospital Encounter [facility] [address] [place] [address] Todd Thomas MD Spondylosis of lumbar region without myelopathy or radiculopathy Discharge Disposition: Discharge to home or self care 10/15/2024 Telephone [facility] [address] [place] [address] Todd Thomas MD pain diary 10/07/2024 7:24 AM CDT - 10/07/2024 11:59 PM CDT Hospital Encounter [facility] [place] [address], [address] [place] [address] Todd Thomas MD Spondylosis of lumbar region without myelopathy or radiculopathy (Primary Dx); Acute bilateral low back pain without sciatica; Closed compression fracture of L3 lumbar vertebra, initial encounter (HCC) Discharge Disposition: Discharge to home or self care 10/07/2024 Telephone [facility] [address] [address] Yin Petersen NP Med Refill 10/05/2024 Telephone [facility] [place] [address], [address] [place] [address] Luba Jones RN PMC Intake Assessment 10/05/[address] [place] [address] Avery Suero DO Scheduling Appointments 10/05/2024 Orders Only [facility] [address] [place] [address] [place] [address] Avery Suero DO Closed compression fracture of L3 lumbar vertebra, initial encounter (HCC) (Primary Dx); Acute bilateral low back pain without sciatica 10/05/2024 Orders Only [facility] [address] [place] [address] 4 [address] [place] [address] Avery Suero DO Closed compression fracture of L3 lumbar vertebra, initial encounter (HCC) (Primary Dx); Acute bilateral low back pain without sciatica 10/01/2024 2:15 PM CDT Office Visit [facility] [address] [place] [address] 4 [address] [place] [address] Ogunlade, Avery, DO Acute bilateral low back pain without sciatica (Primary Dx); Closed compression fracture of L3 lumbar vertebra, initial encounter (HCC) 10/01/2024 Orders Only [facility] [address] [facility] [address] [place] [phone] Avery Suero, DO Acute bilateral low back pain without sciatica (Primary Dx) 09/20/2024 Telephone [facility] [address] [address] Yin Petersen NP Prior Auth (OXYCODONE) 09/16/2024 3:30 PM CDT Office Visit [facility] [address] [address] Abad Grimm MD Chronic bilateral thoracic back pain (Primary Dx); Lipid screening; QAMAR (generalized anxiety disorder) 09/16/2024 Telephone [facility] [address] [address] Yin Petersen NP Med Refill 08/29/2024 7:58 AM CDT - 08/29/2024 11:59 PM CDT Hospital Encounter [facility] Imaging [address] [place] [phone] Discharge Disposition: Discharge to home or self care 08/10/2024 9:34 AM CDT - 08/10/2024 11:59 PM CDT Hospital Encounter [facility] [address] [place] [address] Discharge Disposition: Discharge to home or self care 08/10/2024 8:30 AM CDT Office Visit [facility] [address] [facility] [address] [place] [address] Devin Bahena PA Acute bilateral low back pain without sciatica 08/10/2024 7:23 AM CDT - 08/10/2024 11:59 PM CDT Hospital Encounter [facility] [address] [facility] [address] [place] [address] Lumbar pain Discharge Disposition: Discharge to home or self care 08/06/2024 Orders Only [facility] [address] [facility] [address] [place] [address] Avery Suero DO Lumbar pain (Primary Dx) 08/03/2024 11:30 AM CDT Office Visit [facility] [address] [address] Leslie Guzman NP Acute right-sided low back pain without sciatica (Primary Dx); BMI 29.0-29.9,adult 08/02/2024 Telephone [facility] [address] [place] [address] Jenna Canseco 08/02/2024 Nurse Triage [facility] [address] [address] Yin Petersen NP from Last [...] uit: Not Asked; Counseling Given: Not Answered Alcohol Use Standard Drinks/Week Comments Never 0 (1 standard drink = 0.6 oz pur e alcohol) [facility] Utilities Answer Date Recorded In the past 12 months has [employer], gas, oil, or water [email or web address] threatened to shut off services in your [...] often do you attend chur ch or pentecostalism services? More than 4 times per year 07/07/2023 Do you belong to any clubs o r organizations such as hindu groups, unions, fraternal or athletic groups, or [...] staff should administer the PHQ-9) 0 11/02/2024 [facility]ational Stress Questionnaire Answer Date [...] place to sleep or slept in a usp (including now)? 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 Author CCM Chronic Pain Care Plan Chronic Care Management Lorena Ashraf, RN Note: Problem: Chronic Pain Goals: 1. [...] on stairs Contact your local community or [facility] for information on exercise, fall prevention [...] Imaging Lumbar/Sacral Facet Medial Branch Block Bilateral (96157) (10/15/2024 10:48 AM CDT) Narrative RAD_PACS_[facility] - [...] stenosis. Electronically signed by: Jose Braun M.D. us Devin GORDON IMG MRI PROCEDURES Fin al Result * XR Outside Reference (08/10/2024 9:34 AM CDT) Impressions RAD_PACS[facility] - 08/10/2024 9:34 AM CDT These images are for Reference purposes only and have not been reviewed by [facility]. There will be no report generated by a [facility]iologist. Narrative RAD_PACS_[facility] - 08/10/2024 9:34 AM CDT EXAMINATION: Images For Reference Purposes Only us Avery Suero DO IMG XR PROCEDURES Final [...] spondylolisthesis. No dynamic instability. Procedure Note Louis Walters DO - 08/10/2024 EXAMINATION: XR SCOLIOSIS 6 OR [...] * PSA screen (07/29/2023 3:44 PM CDT) Pathologist [facility] PSA-Total 0.69 <=3.90 ng/mL Comment: Interpretive Data [...] data last revised 21. Testing performed by: [facility], [address] [place] [address], [place]., [address] Blood 07/29/2023 3:44 PM CDT 07/29/2023 6:43 PM CDT us Yin Petersen NP LAB BLOOD ORDERABLES Final Resul t [facility] [address] [facility] Department [place] [address] * Hepatitis C antibody Blood [...] last revised on 2019. Testing performed by: [facility], [address] [place] [address]., [address] Blood 07/29/2023 3:44 PM CDT 07/29/2023 6:42 PM CDT Yin Petersen NP LAB MICROBIOLOGY - GENERAL ORDER CURRY Final Result [facility] [address] [facility] Department of Laboratories [place], [place] [id number] from Last 3 Months or Most Recently Relevant to [place] [phone] [facility] [place] [address] Care Teams Credit Assistant Relationship Specialty Start Date End Date Yin Petersen NP PCP - General Family Medicine 07/07/23
[2024-11-02 12:38] VITALS: BP 118/75; PULSE 69; RESP 15; TEMP 36.9; O2SAT 97
[2024-11-02 13:46] LABS: Hematocrit 49.7 % (42.0-52.0); Hemoglobin 16.7 g/dL (14.0-18.0); Immature Granulocyte Percent A 0.3 % (0-0.5); Lymphocytes Absolute Auto 0.92 K/mm3 (0.9-3.2); Mean Corpuscular HGB Conc 33.6 g/dl (32-36); Mean Corpuscular Hemoglobin 30.0 pg (26-34); Mean Corpuscular Volume 89.4 fl (80-100); Nucleated Red Blood Cells Absolute Auto 0.000 K/mm3 (0.0-0.012); Nucleated Red Blood Cells Perc 0.0 % (0.0-0.2); Platelet Count Result 188 k/mm3 (150-375); Red Blood Count 5.56 M/mm3 (4.6-6.20); White Blood Count 6.6 K/mm3 (4.5-10.0)
[2024-11-02 14:04] LABS: Alanine Aminotransferase 41 U/L (6-50); Albumin Level 4.4 g/dL (3.5-5.1); Alkaline Phosphatase 64 U/L (38-126); Anion Gap 8 mmol/L (4-12); Aspartate Amino Transferase 48 U/L (17-59); Bilirubin,Total 1.1 mg/dL (0.2-1.3); Blood Urea Nitrogen 16 mg/dL (9-20); CRP 4.7 mg/dL (<1.0); Calcium 9.2 mg/dL (8.4-10.2); Carbon Dioxide 25 mmol/L (22-30); Chloride 102 mmol/L (98-107); Estimated CRCL calculation 59 ml/min; Estimated Glomerular Filt Rate > 60; Glucose 88 mg/dL (65-110); Sodium 135 mmol/L (137-145); Total Protein 8.3 g/dL (6.3-8.2)
[2024-11-02 14:11] LABS: Potassium 4.0 mmol/L (3.4-5.0)
[2024-11-02 14:25] VITALS: BP 132/77; PULSE 67; RESP 16; O2SAT 97
[2024-11-02] MEDS: CLINDAMYCIN HCL 150 MG CAP 450 MG PO (14:25)
--- OUTSIDE RECORDS SUMMARY | 2024-11-02 14:32 | XMS_ITS | Encounter Summary ---
Author Organization [facility] Healthcare Address [address] [place] [address] Care Team Providers Care Executive Secretary Social Welfare Name Role Phone Yin Petersen NP Primary Care Provider [phone] Reason for Visit * Reason Onset Date Comments Prior Authorization (Oxycodone) 11/02/2024 Encounter Details Date Type Department Care Team (Late st Contact Info) Description 11/02/2024 Telephone [facility] [address] [facility] [place] [address] Yin Petersen NP [address] [place] [address] Prior Authorization (Oxycodone) Social History Tobacco Use Types Packs/Day Years Used Date Smoking Tobacco: Some Days Vaping Alcohol Use Standard Drinks/Week Comments Never 0 (1 standard drink = 0.6 oz pur e alcohol) [facility] Utilities Answer Date Recorded In the past 12 months has [employer], oil, or water [employer] threatened to shut off services in your [...] How often do you attend chur or episcopalian services? More than 4 times per year 07/07/2023 Do you belong to any clubs o r organizations such as episcopal groups, unions, fraternal or athletic groups, or [...] PHQ-9) 0 11/02/2024 [facility] - Occupational Stress Questionnaire Answer Date Recorded [...] place to sleep or slept in a mcc (including now)? 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 Gender Identity Not on file Sexual Orientation [...] Encounter - Leelee Cunningham MA - 11/02/2024 12:47 PM CDT Received fax from [phone] stating that this drug is on the formulary and does not require a prior authorization, scanned under media * Telephone Encounter - Leelee Cunningham MA - 11/02/2024 11:08 AM CDT [facility] PA on Oxycodone Submitted PA [...] on filedocumented in this encounter Care Teams Executive Secretary Social Welfare Relationship Specialty Start Date End Date Yin Petersen NP PCP - General Family Medicine 07/07/23 documented as of this encounter
--- OUTSIDE RECORDS SUMMARY | 2024-11-02 14:32 | XMS_ITS | Encounter Summary ---
Author Organization [facility] Healthcare Address [address] [place] [address] Care Team Providers Care Neon Sign Worker Name Role Phone Yin Petersen NP Primary Care Provider [phone] Reason for Visit * Reason Onset Date Comments Knee Pain 11/02/2024 Encounter Details Date Type Department Care Team (Late st Contact Info) Description 11/02/2024 Nurse Triage [facility] [address] [place] [address] Yin Petersen NP [facility] [place] [address] Social History Tobacco Use Types Packs/Day Years Used Date Smoking Tobacco: Some Days Vaping Alcohol Use Standard Drinks/Week Comments Never 0 (1 standard drink = 0.6 oz pur e alcohol) [facility] Utilities Answer Date Recorded In the past [address] [facility] [employer], gas, oil, or water [employer] threatened to shut off services in your [...] How often do you attend chur or quaker services? More than 4 times per year 07/07/2023 Do you belong to any clubs o r organizations such as religion groups, unions, fraternal or athletic groups, or [...] should administer the PHQ-9) 0 11/02/2024 [facility] of Occupat ional [...] place to sleep or slept in a retirement (including now)? 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 Called ortho last night via [employer]. No known injuries. 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 Yesterday [...] excruciating, unable to walk) Protocols Used Knee Sbaa-Vogif-NF * Telephone Encounter - Sylwia Olivo RN - 11/02/2024 8:46 AM CDT Regarding: Severe pain and extreme swelling in left knee. ----- Message from [employer] sent at 11/02/2024 8:44 AM CDT ----- Symptom Based Call Chief Complaint(s): Severe pain and extreme swelling in left knee. Duration: Started last night What type of symptom(s) is the patient experiencing? Red Flag. Is the patient concerned they are experiencing a medical emergency requiring an ambulance? No Additional Comments: Patient went to ER at [facility] on 10/28 for a little [...] on filedocumented in this encounter Care Teams Neon Sign Worker Relationship Specialty Start Date End Date Yin Petersen NP PCP - General Family Medicine 07/07/23 documented as of this encounter
--- OUTSIDE RECORDS SUMMARY | 2024-11-02 14:33 | XMS_ITS | Clinical Summary ---
Author Organization [facility] Address [address] [place] [address] Care Team Providers Care Merchandising Specialist Name Role Phone Yin Petersen NP Primary Care Provider Allergies No known active allergies Medications Space [...] Date Swelling of joint, knee, left 11/02/2024 Assessment & Plan (11/02/2024 12:21 PM CDT): - Patient presenting with acutely swollen knee, erythematous and warm to the touch with effusion most likely prepatellar however extending beyond knee borders into back of leg -Concern for septic arthritis as such joint tapping deferred at this time advised patient to proceed to ER for further management Acute right-sided low back pain without sciatica [...] 03/23/2024 Assessment & Plan (05/06/2024 1:57 PM EXERCISE PHYSIOLOGIST CERTIFIED): Stable, improving; patient has returned to exercise, using slow gradual return to reduce risk of re-injury; patient would like to avoid surgical intervention Assessment & Plan (03/24/2024 9:57 AM EXERCISE PHYSIOLOGIST CERTIFIED): Neurovascularly intact. X-rays ordered. Will also consider MRI versus referral to personnel placement specialist. Rest. Ice. Chronic bilateral thoracic back [...] 07/10/2023 Assessment & Plan (05/06/2024 1:57 PM EXERCISE PHYSIOLOGIST CERTIFIED): Not well controlled; patient reports no significant [...] 03/29/2014 Assessment & Plan (05/06/2024 1:57 PM EXERCISE PHYSIOLOGIST CERTIFIED): Stable, well controlled; patient reports he has some episodes of difficulty with swallowing, but generally is able to swallow well To follow up with GI if symptoms worsen Encounters Date Type Department Care Team Description 11/02/2024 11:00 AM CDT Office Visit [facility] at [address] [place] [phone] Manisha Browne MD Swelling of joint, knee, left (Primary Dx) 11/02/2024 Telephone [facility] [address] [phone] Yin Petersen NP Prior Authorization (Oxycodone) 11/02/2024 Nurse Triage [facility] [address] [phone] Yin Petersen NP 10/15/2024 9:30 AM CDT - 10/15/2024 11:59 PM CDT Hospital Encounter [facility] [address] [address], [address] [place] [address] Todd Thomas MD Spondylosis of lumbar region without myelopathy or radiculopathy Discharge Disposition: Discharge to home or self care 10/15/2024 Telephone [facility] [address] [place] [address], [address] [place] [address] Todd Thomas MD pain diary 10/07/2024 7:24 AM CDT - 10/07/2024 11:59 PM CDT Hospital Encounter [facility] [address], [address] [place] [address] Todd Thomas MD Spondylosis of lumbar region without myelopathy or radiculopathy (Primary Dx); Acute bilateral low back pain without sciatica; Closed compression fracture of L3 lumbar vertebra, initial encounter (HCC) Discharge Disposition: Discharge to home or self care 10/07/2024 [facility]phone [facility] [address] [address] Yin Petersen, SUMAYA Med Refill 10/05/2024 Telephone [facility] [address] [place] [address], [address] [place] [address] Luba Jones RN PMC Intake Assessment 10/05/2024 Telephone [facility] [address] [place] [address] [facility] [address] [place] [address] Avery Suero DO Scheduling Appointments 10/05/2024 Orders Only [facility] [address] [place] [address] [facility] [address] [place] [address] Avery Suero DO Closed compression fracture of L3 lumbar vertebra, initial encounter (HCC) (Primary Dx); Acute bilateral low back pain without sciatica 10/05/2024 Orders Only [facility] [address] [place] [address] [facility] [address] [place] [address] Avery Suero, DO Closed compression fracture of L3 lumbar vertebra, initial encounter (HCC) (Primary Dx); Acute bilateral low back pain without sciatica 10/01/2024 2:15 PM CDT Office Visit [facility] [address] [place] [address] Office [address] [place] [phone] Avery Suero, DO Acute bilateral low back pain without sciatica (Primary Dx); Closed compression fracture of L3 lumbar vertebra, initial encounter (HCC) 10/01/2024 Orders Only [facility] [address] [place] [address] Office [address] [place] [address] Avery Suero, DO Acute bilateral low back pain without sciatica (Primary Dx) 09/20/2024 Telephone [facility] [address] [place] [address] Yin Petersen NP Prior Auth (OXYCODONE) 09/16/2024 3:30 PM CDT Office Visit [facility] [address] [place] [address] Abad Grimm MD Chronic bilateral thoracic back pain (Primary Dx); Lipid screening; QAMAR (generalized anxiety disorder) 09/16/2024 Telephone [facility] [address] [place] [address] Yin Petersen NP Med Refill 08/29/2024 7:58 AM CDT - 08/29/2024 11:59 PM CDT Hospital Encounter [facility] [address] [place] [id number] Discharge Disposition: Discharge to home or self care 08/10/2024 9:34 AM CDT - 08/10/2024 11:59 PM CDT Hospital Encounter [facility] [address] [place] [address] Discharge Disposition: Discharge to home or self care 08/10/2024 8:30 AM CDT Office Visit [facility] [address] [place] [address] Office Building [address] [place] [address] Devin Bahena PA Acute bilateral low back pain without sciatica 08/10/2024 7:23 AM CDT - 08/10/2024 11:59 PM CDT Hospital Encounter [facility] [address] [facility] [address] [place] [phone] Lumbar pain Discharge Disposition: Discharge to home or self care 08/06/2024 Orders Only [facility] [address] [facility] Medical Office Building [address] [place] [phone] Avery Suero DO Lumbar pain (Primary Dx) 08/03/2024 11:30 AM CDT Office Visit [facility] [address] [phone] Leslie Guzman NP Acute right-sided low back pain without sciatica (Primary Dx); BMI 29.0-29.9,adult 08/02/2024 Telephone [facility] Scheduling [address] [place] [address] Jenna Canseco 08/02/2024 Nurse Triage [facility] [address] [phone] Yin Petersen NP from Last [...] drink = 0.6 oz pur e alcohol) [facility] [employer] Answer Date Recorded In the past 12 months has [facility] [employer], oil, or water [employer] threatened to shut off services in your [...] week 07/07/2023 How often do you attend [facility] or hindu services? More than 4 times per year 07/07/2023 Do you belong to any clubs o r organizations such as advent groups, unions, fraternal or athletic groups, or [...] staff should administer the PHQ-9) 0 11/02/2024 [facility] Occupat ional Health - Occupational Stress [...] place to sleep or slept in a snf (including now)? No 07/07/2023 PHQ-9 Answer Date [...] on file Legal Sex Male 7:32 PM EXERCISE PHYSIOLOGIST CERTIFIED Gender Identity Not on file Sexual Orientation [...] Pain Care Plan Chronic Care Management Lorena Ashraf RN Note: Problem: Chronic Pain Goals: 1. Minimize further functional decline 2. Maximize quality of life 3. Control pain Strategies: - Activity/exercise program recommendation - Conservative stepwise pain medicine strategy with multi-disciplinary approach - Recommend healthy lifestyle strategies and compensatory methods as needed Reduce the likelihood of falling Lifestyle No Lorena Liu, SHORTY Note: Below are four things you can [...] stairs Contact your local community or senior [place] for information on exercise, fall prevention programs, [...] Imaging Lumbar/Sacral Facet Medial Branch Block Bilateral (38026) (10/15/2024 10:48 AM CDT) Narrative RAD_PACS_[facility] - [...] Outside Reference (08/10/2024 9:34 AM CDT) Impressions [facility]_PACS_[facility] - 08/10/2024 9:34 AM CDT These images are for Reference purposes only and have not been reviewed by [facility]iology. There will be no report generated by a [facility] Radiologist. Narrative RAD_PACS_[facility] - 08/10/2024 9:34 AM CDT EXAMINATION: Images For Reference Purposes Only us Avery Suero DO IMG XR PROCEDURES Final Result Performing Organization Address City/State/[facility] Co de Phone Number RAD_PACS_[facility] * XR Scoliosis 6 or More [...] No dynamic instability. Procedure Note Louis Walters, DO - 08/10/2024 EXAMINATION: XR SCOLIOSIS 6 [...] data last revised 21. Testing performed by: [facility], [address] [place] [address], [place]., [id number] Blood 07/29/2023 3:44 PM CDT 07/29/2023 6:43 PM CDT Yin Petersen LATHE WINDER LAB BLOOD ORDERABLES Final Resul t [facility] (YURI[place]) [address] [facility] [place] [address] * Hepatitis C antibody Blood (07/29/2023 3:44 [...] last revised on 2019. Testing performed by: [facility], [address] [place] [address]., [id number] Blood 07/29/2023 3:44 PM CDT 07/29/2023 6:42 PM CDT Yin Petersen NP LAB MICROBIOLOGY - GENERAL ORDER CURRY Final Result Performing Organization Address [facility] Co de Phone Number [facility] DIAZ ([place]) [address] [facility] [place] [address] from Last 3 Months or Most Recently Relevant to Health Maintenance [place] [address] [facility] Care Teams Merchandising Specialist Relationship Specialty Start Date End Date Yin Petersen NP PCP - General Family Medicine 07/07/23
--- OUTSIDE RECORDS SUMMARY | 2024-11-02 14:33 | XMS_ITS | Clinical Summary ---
Author Organization [facility] Address [facility] [place] [address] Care Team Providers Care Flight Dispatcher Name Role Phone None, Provider MD Primary [...] patient's age to complete [place] [address] [facility] Care Teams Flight Dispatcher Relationship Specialty Start Date End Date None, Provider, PCP - General UNKNOWN PHYSICIAN SPECIALTY 06/13/23
--- NOTE | 2024-11-02 19:02 | ED_ITS ---
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 No fevers or chills. Related Data Home Medications ?Medication ?Instructions ?Recorded ?Confirmed ?Last Taken ?Type omeprazole 40 mg capsule,delayed 40 mg PO DAILY Unknown History release Allergies Allergy/AdvReac Type Severity Reaction Status Date / Time No Known Allergies Allergy Verified 11/02/24 12:38 Review of Systems 2 Review of Systems: All systems reviewed & are unremarkable except as noted in HPI and below PMFSH Past Medical History Medical History (Updated 11/02/24 @ 13:08 by Keely Velasquez MD) Esophageal dilatation Asthma Asthma Family History Family History Father Family history of cardiovascular disease Mother Carcinoma of colon Social History Social History Smoking status: Never smoker Second hand tobacco smoke exposure: No Alcohol intake: current Substance use: never Substance use type: does not use Living arrangements: with family Occupation/Education: occupation Gender identity (if verbalized by the patient): Male Exam 2 Narrative: EXAMINATION OF ORGAN SYSTEMS/BODY AREAS: Constitutional: Vital signs per nursing GENERAL:[No acute distress, non-toxic appearing.] HEAD: Normal with no signs of head trauma. EYES: EOMI, conjunctiva normal ENT: Hearing grossly intact LUNGS: Nonlabored breathing. HEART: [Regular rate and rhythm] ABD: [Soft], [nontender to palpation] EXT: Normal range of motion; prepatellar bursitis redness and tenderness and swelling. No knee effusion SKIN: See above NEURO: [Alert and oriented x 3. No gross focal sensory or strength deficits.] PSYCH: Normal affect Course Vital Signs Vital signs: Vital Signs Temperature 97.7 F 11/02/24 12:20 Pulse Rate 89 11/02/24 12:20 Respiratory Rate 16 11/02/24 12:20 Blood Pressure 111/59 L 11/02/24 12:20 Pulse Oximetry 95 11/02/24 12:20 Oxygen Delivery Room Air 11/02/24 12:20 Temperature 98.5 F 11/02/24 12:38 Pulse Rate 67 11/02/24 14:25 Respiratory Rate 16 11/02/24 14:25 Blood Pressure 132/77 11/02/24 14:25 Pulse Oximetry 97 11/02/24 14:25 Oxygen Delivery Room Air 11/02/24 12:38 MDM - Extremity (Nontraumatic) MDM Narrative Medical decision making narrative: Patient presents with left knee redness and pain, he has completely normal painless range of motion, the only redness S to the prepatellar bursa without any effusion, I have very low concern for joint involvement, suspect most likely bursitis likely from the prolonged kneeling, he has no white blood cell count and lactic, but I did obtain blood cultures. He is instructed to elevate, I will start him on antibiotics just in case, discussed with orthopedics Dr Perez, patient agreeable to outpatient management and strict return precautions Lab Data 11/02/24 13:37 11/02/24 13:37 Labs: Lab Results 11/02/24 Range/Units 13:37 WBC 6.6 (4.5-10.0) K/mm3 RBC 5.56 (4.6-6.20) M/mm3 Hgb 16.7 (14.0-18.0) g/dL Hct 49.7 (42.0-52.0) % MCV 89.4 (80-100) fl MCH 30.0 (26-34) pg MCHC 33.6 (32-36) g/dl RDW 12.3 (11.5-14.5) % Plt Count 188 (150-375) k/mm3 MPV 8.6 (7.4-10.4) fl Immature Gran % (Auto) 0.3 (0-0.5) % Neut % (Auto) 70.0 (45.5-73.1) % Lymph % (Auto) 14.0 L (18.3-44.2) % [place] % (Auto) 9.9 H (2.6-8.5) % Eos % (Auto) 4.7 H (0-4.4) % Baso % (Auto) 1.1 (0.2-1.2) % Lymph # (Auto) 0.92 (0.9-3.2) K/mm3 [place] # (Auto) 0.7 H (0.1-0.6) K/mm3 Eos # (Auto) 0.3 (0-0.3) K/mm3 Baso # (Auto) 0.1 (0.0-0.1) K/mm3 Abs Immat Gran (auto) 0.02 (0.00-0.031) K/mm3 Absolute Neuts (auto) 4.6 (1.3-6.7) K/mm3 Absolute Nucleated RBC 0.000 (0.0-0.012) K/mm3 Nucleated RBC % 0.0 (0.0-0.2) % ESR 40 H (0-20) mm/hr Sodium 135 L (137-145) mmol/L Potassium 4.0 (3.4-5.0) mmol/L Chloride 102 (98-107) mmol/L Carbon Dioxide 25 (22-30) mmol/L Anion Gap 8 (4-12) mmol/L BUN 16 (9-20) mg/dL Creatinine 1.16 (0.7-1.3) mg/dL Estim Creat Clear Calc 59 ml/min Estimated GFR > 60 (59 - ) Glucose 88 (65-110) mg/dL Lactic Acid 0.8 (0.7-2.0) mmol/L Calcium 9.2 (8.4-10.2) mg/dL Total Bilirubin 1.1 (0.2-1.3) mg/dL AST 48 (17-59) U/L ALT 41 (6-50) U/L Alkaline Phosphatase 64 (38-126) U/L C-Reactive Protein 4.7 H (<1.0) mg/dL Total Protein 8.3 H (6.3-8.2) g/dL Albumin 4.4 (3.5-5.1) g/dL Discharge Plan Discharge Clinical Impression: Bursitis, prepatellar, left Patient Disposition: Home Condition: Stable Instructions: Antibiotic Form, Knee Bursitis (ED) Additional Instructions: Please follow-up with the orthopedic surgeon, take the antibiotics as prescribed, make sure that you try not to kneel, you can use compression, ice, elevate. Patient Language: Burmese Prescriptions: New sulfamethoxazole-trimethoprim [Bactrim DS] 800-160 mg tablet 1 tablet PO Q12H Qty: 14 0RF No Action omeprazole 40 mg capsule,delayed release(DR/EC) 40 mg PO DAILY ibuprofen 800 mg tablet 800 mg PO TID Qty: 90 5RF Follow-up/Referrals: Alfa,MD Abad [Primary Care Provider, Unknown] Fred Perez MD [Physician, Orthopedics] - 2 Days
== END 2024-11-02 14:35 | disposition home or self-care (01) ==
PROVIDERS: Emergency Provider Emergency Medicine; PCP Hospitalist
DX: M70.88 Other soft tissue disorders related to use, overuse and pressure other site (principal); J45.909 Unspecified asthma, uncomplicated
CPT/HCPCS: 36415; 80053; 83605; 85025; 85652; 86140; 99283